=== PATIENT | male | born 1970 | race Caucasian/White ===

== ENCOUNTER 2024-01-30 15:39 | Emergency (ER) | payer OTHER, SELFPAY ==
[2024-01-30 15:49] VITALS: BP 146/88
[2024-01-30 16:14] VITALS: BP 135/89
[2024-01-30 16:29] LABS: % Basophils 0.2 % (0-2); % Eosinophils 0.4 % (0-6); % Immature Granulocytes 0.4 % (0-0.5); % Lymphocytes 14.1 % (20.5-51.1); % Monocytes 5.2 % (1.7-9.3); % Neutrophils 79.7 % (42.2-75.2); Absolute Eosinophils 0.1 10^3/uL (0-0.7); Absolute Immature Granulocytes 0.1 10^3/uL (0-0.05); Absolute Lymphocytes 1.7 10^3/uL (1.2-3.4); Absolute Monocytes 0.6 10^3/uL (0.1-0.6); Absolute Neutrophils 9.5 10^3/uL (1.4-6.5); Hematocrit 42.5 % (39.0-52.0); Hemoglobin 15.2 g/dL (13.0-18.0); Mean Corp Hgb Conc. 35.8 g/dL (33.0-37.0); Mean Corpuscular Hgb 32.9 pg (27.0-31.0); Mean Platelet Volume 8.8 fL (7.4-10.4); Nucleated Red Blood Cells % 0 % (-); Platelet Count 212 10^3/uL (130-400); Red Blood Cell Count 4.62 10^6/uL (4.70-6.10); Red Cell Dist. Width 13.1 % (11.5-14.5); White Blood Cell Count 11.9 10^3/uL (4.8-10.8)
--- NOTE | 2024-01-30 16:29 | ED.GENMED ---
History of Present Illness
<Marcela Bah PA-C - Last Filed: 02/10/24 10:46>
General
Chief Complaint: Chest Pain
Source: patient
Exam Limitations: none
Time Seen by Provider: 01/30/24 15:57
Nursing documentation reviewed up to this point in time: agreed with
History of Present Illness
History of Present Illness:
PT IS A 53 Y/O M with no sig pmh
fhx of heart disease (dad > 55)
was doing some physical labor and shortly after started feeling pain in the L upper chest coming and going 6/10 pain lasting a few seconds/minutes and resolving
he has had 2-3 days of upper back pain dull ache
drinks alcohol a few nihgts a week
no h/o CAD
has seen cards years ago for cps, had cardiac cath, no interventions; has MVP and has not been seen by cards in years ([facility])
nonsmoker
no pain currently
nothing taken, no asa
Past History
<Marcela Bah PA-C - Last Filed: 02/10/24 10:46>
Past History
ED Past Medical History: Other (mvp)
ED Past Surgical History: Tonsilectomy
Social History
Tobacco: Non-smoker
Alcohol: Occasional
Drug: None
Personal:
Living: with family
Review of Systems
<Marcela Bah PA-C - Last Filed: 02/10/24 10:46>
Review of Systems
Allergies reviewed?: Yes
All Other Systems: Not applicable
Phy Exam
<Marcela Bah PA-C - Last Filed: 02/10/24 10:46>
Physical Exam
Physical Exam:
GENERAL: Alert , in no apparent distress
EYE: pupils equal and reactive
NECK: Supple
ENT: o/p clr, mmm.
CARDIAC: Regular rate and rhythm .
LUNGS: Clear breath sounds bilaterally, no acute respiratory distress, no wheezes/rales/rhonchi
ABDOMEN: Soft, without focal tenderness, no r/g, no cvat, normal bowel sounds
NEUROLOGICAL: Alert and oriented, no focal neuro deficits
SKIN: Warm and dry, skin intact.
MUSCULOSKELETAL: No edema, well perfused. neg michell's sign
PSYCH: Normal and appropriate interaction.
Scores
<Marcela Bah PA-C - Last Filed: 02/10/24 10:46>
Heart Score for Chest Pain Patients
Heart Score for Chest Pain Patients: 1
Heart Score Risk: 2.5% MACE over next 6 weeks
<Delio Chavira PA-C - Last Filed: 01/30/24 20:16>
Heart Score for Chest Pain Patients
STEMI patient?: No
History: Slightly or Non-Suspicious
ECG: Normal
Age: >45 - <65 years
Risk Factors: No Risk Factors
Troponin: </= Normal Limit
Heart Score for Chest Pain Patients: 1
Heart Score Risk: 2.5% MACE over next 6 weeks
Course
<Marcela Bah PA-C - Last Filed: 02/10/24 10:46>
Orders/Labs/Results
Orders:
Orders
01/30/24 15:41
Electrocardiogram (*1) Urgent
Reason for Study: Chest Pain
EKG- Treatment ONCE
01/30/24 16:17
CMP [Comprehensive Metabolic Panel] Urgent
Complete Blood Count/With Diff Urgent
Lipase Urgent
Comment: LIPASE ADDED ON BY FLOOR 4:30PM 01-30-24
Troponin I Urgent
01/30/24 16:27
Add On- LAB Urgent
Comments:: in lab
Tests Added?: lipase
Aspirin Chewable [Low Strength Aspirin] 324 mg PO NOW STA
01/30/24 17:18
CR Chest - 2 Views Urgent
Comment:
Reason For Exam: chest pain
01/30/24 17:27
EKG- Treatment ONCE
01/30/24 19:30
Electrocardiogram (*1) Urgent
Reason for Study: Chest Pain
01/30/24 19:31
Troponin I Urgent
Abnormal Lab Results
01/30/24
16:17
WBC 11.9 H 10^3/uL
(4.8-10.8)
RBC 4.62 L 10^6/uL
(4.70-6.10)
MCH 32.9 H pg
(27.0-31.0)
Abs Immat Gran (auto) 0.1 H 10^3/uL
(0-0.05)
Absolute Neuts (auto) 9.5 H 10^3/uL
(1.4-6.5)
Neutrophils % 79.7 H %
(42.2-75.2)
Lymphocytes % 14.1 L %
(20.5-51.1)
BUN 22 H mg/dl
(9-20)
Glucose 123 H mg/dl
(70-99)
01/30/24 16:17
01/30/24 16:17
Vital Signs
Initial and Last Documented VS:
Initial Vital Signs
Temp Pulse Resp BP Pulse Ox
98.6 F 89 16 146/88 96
01/30/24 15:49 01/30/24 15:49 01/30/24 15:49 01/30/24 15:49 01/30/24 15:49
Last Documented Vital Signs
Temp Pulse Resp BP Pulse Ox
98.6 F 71 16 141/84 97
01/30/24 15:49 01/30/24 19:30 01/30/24 19:30 01/30/24 19:00 01/30/24 16:14
<Delio Chavira PA-C - Last Filed: 01/30/24 20:16>
Orders/Labs/Results
Orders:
Orders
01/30/24 15:41
Electrocardiogram (*1) Urgent
Reason for Study: Chest Pain
EKG- Treatment ONCE
01/30/24 16:17
CMP [Comprehensive Metabolic Panel] Urgent
Complete Blood Count/With Diff Urgent
Lipase Urgent
Comment: LIPASE ADDED ON BY FLOOR 4:30PM 01-30-24
Troponin I Urgent
01/30/24 16:27
Add On- LAB Urgent
Comments:: in lab
Tests Added?: lipase
Aspirin Chewable [Low Strength Aspirin] 324 mg PO NOW STA
01/30/24 17:18
CR Chest - 2 Views Urgent
Comment:
Reason For Exam: chest pain
01/30/24 17:27
EKG- Treatment ONCE
01/30/24 19:30
Electrocardiogram (*1) Urgent
Reason for Study: Chest Pain
01/30/24 19:31
Troponin I Urgent
Abnormal Lab Results
01/30/24
16:17
WBC 11.9 H 10^3/uL
(4.8-10.8)
RBC 4.62 L 10^6/uL
(4.70-6.10)
MCH 32.9 H pg
(27.0-31.0)
Abs Immat Gran (auto) 0.1 H 10^3/uL
(0-0.05)
Absolute Neuts (auto) 9.5 H 10^3/uL
(1.4-6.5)
Neutrophils % 79.7 H %
(42.2-75.2)
Lymphocytes % 14.1 L %
(20.5-51.1)
BUN 22 H mg/dl
(9-20)
Glucose 123 H mg/dl
(70-99)
01/30/24 16:17
01/30/24 16:17
Vital Signs
Initial and Last Documented VS:
Initial Vital Signs
Temp Pulse Resp BP Pulse Ox
98.6 F 89 16 146/88 96
01/30/24 15:49 01/30/24 15:49 01/30/24 15:49 01/30/24 15:49 01/30/24 15:49
Last Documented Vital Signs
Temp Pulse Resp BP Pulse Ox
98.6 F 71 16 141/84 97
01/30/24 15:49 01/30/24 19:30 01/30/24 19:30 01/30/24 19:00 01/30/24 16:14
<Marcela Bah PA-C - Last Filed: 02/10/24 10:46>
MDM/Problems Addressed
Differential Diagnosis Includes:
acs, chest wall pain, gerd
MDM/Problems Addressed:
53 y/o M with L upper back pain a few days and then waxing and waning chest pain for a few hours after activity
no previous cad/cardiac history
pt has no cough; not pleuritic
no PE RF
on exam well appearing
no tednerness on palpation of his back or chest wall
abd soft nontender
ekg sinus with 1st degree block, t wave inv II, III, avF, biphasic v5-v6
2 trop will be performed
suspect pt will rule OUT but will need close cards f/u
<Delio Chavira PA-C - Last Filed: 01/30/24 20:16>
*Critical Care Note
Total Time (30-74mins, 75-104mins- exclusive of procedures): Not Applicable
<Delio Chavira PA-C - Last Filed: 01/30/24 20:16>
Update Note
Update Note:
Received care of patient upon pending repeat troponin. Patient reassessed and appears comfortable on exam denies current pain. Initial and repeat troponins undetectable. EKGs have been reviewed without changes. Patient here with atypical chest
discomfort stable vital signs unlikely to be PE. Stable for discharge home with cardiology follow-up. Chest Pain hotline used.
ED Attending Note
<Marcela Bah PA-C - Last Filed: 02/10/24 10:46>
-
Portions of this chart may have been created with voice recognition software.� Occasional wrong word or��sound alike� substitutions may have occurred due to the inherent limitations of voice recognition software.
Discharge Plan
Departure
Patient Disposition: Home (Routine Discharge)
Date of Disposition: 01/30/24
Time of Disposition: 20:15
Patient with high blood pressure during this ER visit?: No
Discharge Problem:
Chest pain
Instructions: Chest Pain CBC Follow Up
Referrals:
Julia Alexander DO [Family Provider] -
Activity Restrictions/Additional Instructions:
Please return here for worsening symptoms otherwise follow-up with family doctor and cardiology.
Interventions
Interventions:
*Risk Screen - Suicide Last Done: 01/30/24 16:14
*General Assessment Last Done: 01/30/24 16:14
*Neglect/Abuse Screening Last Done: 01/30/24 16:14
ED- Fall Risk Assessment Last Done: 01/30/24 16:14
*ED COVID-19 Vaccine History Last Done: 01/30/24 16:14
*Nursing Disposition Last Done: 01/30/24 20:38
ED- Cardiac Assessment Last Done: 01/30/24 16:14
Discharge Date and Time
Discharge Date/Time: 01/30/24 20:42
Print Language: GUATEMALAN
[2024-01-30] MEDS: LOW STRENGTH ASPIRIN 324 MG PO (16:30)
[2024-01-30 16:42] LABS: ALT (SGPT) 19 U/L (0-50); AST (SGOT) 28 U/L (17-59); Albumin 4.7 g/dl (3.5-5.0); Alkaline Phosphatase 110 U/L (38-126); Blood Urea Nitrogen 22 mg/dl (9-20); Calcium 9.6 mg/dl (8.4-10.2); Carbon Dioxide 24 mmol/L (22-30); Chloride 105 mmol/L (98-107); Glucose 123 mg/dl (70-99); Sodium 138 mmol/L (135-145); Total Bilirubin 0.7 mg/dl (0.2-1.3); eGFR > 60.00
[2024-01-30 16:53] LABS: Troponin I < 0.012 ng/ml
[2024-01-30 17:00] VITALS: BP 148/87
[2024-01-30 17:16] LABS: Lipase 61 U/L (23-300)
[2024-01-30 18:10] VITALS: BP 127/86
[2024-01-30 19:00] VITALS: BP 141/84
[2024-01-30 20:01] LABS: Troponin I < 0.012 ng/ml
== END 2024-01-30 20:42 | disposition home or self-care (01) ==
LOC: EMR 15:39
PROVIDERS: Emergency Medicine; Physician Assistant; EMERGENCY PHYSICIAN Emergency Medicine; FAMILY PHYSICIAN Family Medicine
DX: R07.89 Other chest pain (principal); M54.6 Pain in thoracic spine; Z88.2 Allergy status to sulfonamides
CPT/HCPCS: 99284; 71046; 80053; 83690; 84484; 85025; 93005

== ENCOUNTER → 2024-02-03 07:05 | Outpatient (REF) | payer OTHER, SELFPAY | LOC: RCS 07:05 | PROVIDERS: ATTENDING PHYSICIAN Internal Medicine; FAMILY PHYSICIAN Family Medicine | DX: R07.9 Chest pain, unspecified (principal); R94.31 Abnormal electrocardiogram [ECG] [EKG]; Z82.49 Family history of ischemic heart disease and other diseases of the circulatory system | CPT/HCPCS: 93306 ==

== ENCOUNTER → 2024-02-07 08:13 | Outpatient (REF) | payer OTHER, SELFPAY | LOC: DHCBC/DCA 08:13 | PROVIDERS: ATTENDING PHYSICIAN Internal Medicine; FAMILY PHYSICIAN Family Medicine | DX: R07.9 Chest pain, unspecified (principal); R94.31 Abnormal electrocardiogram [ECG] [EKG]; Z82.49 Family history of ischemic heart disease and other diseases of the circulatory system | CPT/HCPCS: 78452; 93017; A9500 ==